=== PATIENT | male | born 1980 | race Two or more races ===

== ENCOUNTER → 2024-12-04 | Emergency (ER) | payer OTHER ==
[~2024-12-04] VITALS: Ht 175.3 cm; Wt 122.5 kg
[~2024-12-04] MED LIST: METOPROLOL TART25 MG; TENORMIN25 MG
== END | disposition left against medical advice (07) ==
LOC: ER 22:30
DX: Z53.21 Procedure and treatment not carried out due to patient leaving prior to being seen by health care provider (principal)